=== PATIENT | female | born 1995 | race Hispanic/Latino ===

== ENCOUNTER 2017-01-29 16:41 | Emergency (ER) | payer BC ==
[2017-01-29 16:49] VITALS: BMI 22.3
[2017-01-29 16:53] VITALS: BP 117/78; PULSE 98; RESP 18; TEMP 98.8; O2SAT 99
[2017-01-29] MEDS ORDERED: Sodium Chloride 0.9% 1,000 ML IV STA (17:32)
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
--- NOTE | 2017-01-29 19:39 | CT ---
EXAM: CT Head Without Intravenous Contrast CLINICAL HISTORY: 21 years old, female; Signs and symptoms; Other: Near syncope; Additional info: R/O bleed TECHNIQUE: Axial computed tomography images of the head/brain without intravenous contrast. This CT exam was performed using one or more of the following dose reduction techniques: automated exposure control, adjustment of the mA and/or kV according to patient size, and/or use of iterative reconstruction technique. Coronal and sagittal reformatted images were created and reviewed. EXAM DATE/TIME: 01/29/2017 5:26 PM COMPARISON: No relevant prior studies available. FINDINGS: LIMITATIONS: Mild streak/motion artifact. BRAIN: No significant acute abnormality identified. No acute hemorrhage seen within the brain. No acute extra-axial fluid collections visualized. No evidence of significant mass effect within the brain.Normal cash-white matter differentiation. VENTRICLES: No evidence of significant hydrocephalus. BONES/JOINTS: No acute fractures or other acute bony abnormality noted. SOFT TISSUES: No acute abnormality of the visualized soft tissues is seen. SINUSES: Minimal mucosal thickening in the bilateral ethmoid sinuses. Remaining visualized paranasal sinuses appear clear. MASTOID AIR CELLS: Mastoid air cells appear clear. IMPRESSION: - No acute findings seen within the brain. - See above for remaining findings.
--- NOTE | 2017-01-29 19:55 | CT ---
EXAM: CT Cervical Spine Without Intravenous Contrast CLINICAL HISTORY: 21 years old, female; Signs and symptoms; Other: Near syncope; Additional info: Trauma TECHNIQUE: Axial computed tomography images of the cervical spine without intravenous contrast. This CT exam was performed using one or more of the following dose reduction techniques: automated exposure control, adjustment of the mA and/or kV according to patient size, and/or use of iterative reconstruction technique. Coronal and sagittal reformatted images were created and reviewed. EXAM DATE/TIME: 01/29/2017 5:26 PM COMPARISON: No relevant prior studies available. FINDINGS: LIMITATIONS: Mild streak/motion artifact. VERTEBRAE: No acute cervical spine fractures visualized. No evidence of significant vertebral subluxation. Normal alignment of the facet joints. DISCS/SPINAL CANAL/NEURAL FORAMINA: Intervertebral disc heights are preserved. No evidence of bony spinal canal stenosis. SOFT TISSUES: No acute abnormality of the visualized soft tissues is seen. LUNG APICES: No pneumothorax seen. IMPRESSION: - No acute cervical spine fractures identified. - See above for remaining findings.
== END 2017-01-29 20:20 | disposition home or self-care (01) ==
LOC: H.ER 16:41
DX: S06.0X0A Concussion without loss of consciousness, initial encounter (principal); W19.XXXA Unspecified fall, initial encounter; Y92.89 Other specified places as the place of occurrence of the external cause
CPT/HCPCS: 70450; 72125; 81025; 96360; 96361; 99283; J7040

== ENCOUNTER 2017-03-03 14:21 | Emergency (ER) | payer BC ==
[2017-03-03 14:21] VITALS: BMI 22.3
[2017-03-03 14:52] VITALS: BP 101/68; PULSE 72; RESP 16; TEMP 98.8; O2SAT 100
[2017-03-03] MEDS ORDERED: Naproxen 500 MG TAB PO STA (15:16)
--- NOTE | 2017-03-03 15:16 | ED PDOC ---
HPI: Back Time Seen by Provider: 03/03/17 15:04 Chief Complaint (Nursing): Back Pain Chief Complaint (Provider): Back Pain History Per: Patient History/Exam Limitations: no limitations Onset/Duration Of Symptoms: Hrs (since earlier today) Current Symptoms Are (Timing): Still Present Additional Complaint(s): Cely is a 21-year-old female who presents to the ED for complaints of lower back pain radiating to the right leg and gluteal region, onset earlier today after patient leaned over. She reports the pain began when she attempted to stand from the kneeling position. The pain impedes her ability to fully stand up straight, and worsens with movement/sitting up. Denies history of back pain. Patient has not taken any medication for relief of symptoms. No complaints of urinary or rectal incontinence. PMD: [facility] Past Medical History Reviewed: Historical Data, Nursing Documentation, Vital Signs Vital Signs: Last Vital Signs Temp 98.8 F 03/03/17 14:50 Pulse 72 03/03/17 14:50 Resp 16 03/03/17 14:50 BP 101/68 03/03/17 14:50 Pulse Ox 100 03/03/17 14:50 - Medical History PMH: Asthma Denies: Back Problems - Family History Family History: States: Unknown Family Hx - Home Medications Home Medications: Ambulatory Orders Medication Instructions Recorded Naproxen [Naprosyn] 500 mg PO Q12H #20 tab 01/29/17 Naproxen 1 tab PO BID #14 tab 03/03/17 diaZEpam [Valium] 5 mg PO Q6 PRN #6 tab 03/03/17 - Allergies Allergies/Adverse Reactions: Allergies Allergy/AdvReac Type Severity Reaction Status Date / Time amoxicillin Allergy RASH Verified 03/03/17 14:53 peanut Allergy RASH Verified 03/03/17 14:53 Review of Systems ROS Statement: Except As Marked, All Systems Reviewed And Found Negative Gastrointestinal: Negative for: Other (Rectal incontinence) Genitourinary Female: Negative for: Incontinence Musculoskeletal: Positive for: Back Pain Physical Exam - Reviewed Nursing Documentation Reviewed: Yes Vital Signs Reviewed: Yes - Physical Exam Appears: Positive for: Non-toxic, No Acute Distress Head Exam: Positive for: ATRAUMATIC, NORMOCEPHALIC Skin: Positive for: Normal Color, Warm, Dry Eye Exam: Positive for: EOMI, Normal appearance, PERRL ENT: Positive for: Normal ENT Inspection Neck: Positive for: Normal, Painless ROM, Supple Back: Positive for: Normal Inspection, Other (No back pain re-produced on palpation). Negative for: Vertebral Tenderness Extremity: Positive for: Normal ROM. Negative for: Pedal Edema, Deformity Neurologic/Psych: Positive for: Alert, Oriented - Laboratory Results Urine POC: Negative - ECG O2 Sat by Pulse Oximetry: 100 (RA) Pulse Ox Interpretation: Normal Medical Decision Making Medical Decision Making: Time: 15:16 Initial Impression: Back pain Initial Plan: --Labs --Patient given Naproxen and Valium Scribe Attestation: Documented by Gabriela Cox, acting as a scribe for Mario Hobbs PA-C Provider Scribe Attestation: All medical record entries made by the Scribe were at my direction and personally dictated by me. I have reviewed the chart and agree that the record accurately reflects my personal performance of the history, physical exam, medical decision making, and the department course for this patient. I have also personally directed, reviewed, and agree with the discharge instructions and disposition. Disposition - Clinical Impression Clinical Impression: Back strain - Patient ED Disposition Is Patient to be Admitted: No - Disposition Disposition: Routine/Home Disposition Time: 16:00 Condition: FAIR Prescriptions: diaZEpam [Valium] 5 mg PO Q6 PRN #6 tab PRN Reason: Muscle Spasm Naproxen 1 tab PO BID #14 tab Instructions: Back Pain (ED) Forms: [employer] (Portuguese)
== END 2017-03-03 16:42 | disposition home or self-care (01) ==
LOC: H.ER 14:21
DX: M54.9 Dorsalgia, unspecified (principal)